=== PATIENT | female | born 1980 | race Hispanic/Latino ===

== ENCOUNTER 2016-12-13 19:56 | Emergency (ER) | payer MEDICARE ==
[~2016-12-13 19:56] MED LIST: ISOVUE-370 76%-LOCM 1 ML ONE
[2016-12-13 20:47] LABS: #Eosinphils 0.2 thou/uL (0.0-0.7); #Lymphocytes 1.8 thou/uL (1.20-3.40); #Monocytes 0.7 thou/uL (0.11-0.59); #Neutrophils 5.3 thou/uL (1.40-6.50); %Basophils 0.3 % (0.0-1.0); %Lymphocytes 22.5 % (21.0-51.0); %Monocytes 8.5 % (0.0-10.0); Hematocrit 41.1 % (36.0-47.0); Mean Platelet Volume 7.1 fL (7.4-10.4); White Blood Cell (WBC) Count 7.9 thou/uL (4.8-10.8)
[2016-12-13] MEDS ORDERED: Promethazine HCl 25 MG/ML VIAL ONE (21:00)
[2016-12-13] MEDS ORDERED: Fentanyl 100 MCG/2 ML VIAL ONE (21:00)
[2016-12-13 21:06] LABS: ALT (SGPT) 15 U/L (8-55); AST (SGOT) 13 U/L (5-34); Alkaline Phosphatase 88 U/L (40-150); Anion Gap 11 mmol/L (10-20); BUN (Urea Nitrogen) 16 mg/dL (7.0-18.7); Bilirubin, Total 0.4 mg/dL (0.2-1.2); CK (CPK) 81 U/L (29-168); Calc. Creatinine Clearance 0 mL/min (70-130); Calcium 9.6 mg/dL (7.8-10.44); Carbon Dioxide 26 mmol/L (22-29); Chloride 105 mmol/L (98-107); Estimated GFR-MDRD 75; Lipase 7 U/L (8-78); Protein, Total 6.9 g/dL (6.0-8.3)
--- NOTE | 2016-12-13 21:09 | RAD ---
AP VIEW CHEST 12/13/16 HISTORY: Chest pain, shortness of breath. AP view chest is obtained. The lungs are well aerated. No evidence of active intrathoracic disease s een. No evidence of effusions, pneumonia or pneumothorax seen. IMPRESSION: Unremarkable AP view chest. POS: [facility]
[2016-12-13 21:10] LABS: Troponin I Less than 0.010 ng/mL (< 0.028)
--- NOTE | 2016-12-13 23:32 | CT ---
CTA CHEST AND ABDOMEN CT AORTIC DISSECTION 12/13/16 HISTORY: Right sided chest pain, right upper quadrant pain since this morning. Contrast enhanced CTA of the chest and abdomen performed. 2D and 3D reconstructed images performed on an independent 3D workstation. The lung parenchyma is unremarkable. No evidence of mediastinal, axillary or hilar lymphadenopathy is seen. The liver and spleen are unremarkable. The gallbladder has been surgically removed. The pancreas is unremarkable. Adrenal glands and kidneys are unremarkable. CTA demonstrates the ascending and descending thoracic aorta to be unremarkable. No evidence of diss ections or aneurysms seen. CTA abdominal aorta demonstrates the SMA, celiac, YENY and renal arteries to be patent. No significan t evidence of aortic calcifications, dissections or abnormality seen. Some fluid is seen in the umbilical region. Has this patient had a recent umbilical surgery or herni a repair? Small bowel and appendix are unremarkable. IMPRESSION: No evidence of aortic dissections or aneurysms. POS: [place]
== END 2016-12-13 22:40 | disposition home or self-care (01) ==
LOC: ERS 19:56
DX: J45.909 Unspecified asthma, uncomplicated (principal); R11.0 Nausea; F32.9 Major depressive disorder, single episode, unspecified; F17.210 Nicotine dependence, cigarettes, uncomplicated
CPT/HCPCS: 71010; 71275; 80053; 82553; 83690; 84484; 84703; 85025; 93005; 96361; 96374; 96375; J2550; J3010

== ENCOUNTER 2017-02-13 19:44 | Emergency (ER) | payer MEDICARE ==
[2017-02-13 20:19] LABS: Bilirubin Negative (Negative); Blood, Urine Negative (Negative); Glucose, Urine (Dipstick) Negative (Negative); Ketone, Urine Negative (Negative); Nitrite Negative (Negative); Protein, Urine (Dipstick) Negative (Neg-Trace)
[2017-02-13 20:43] LABS: #Basophils 0.1 thou/uL (0.0-0.2); #Eosinphils 0.2 thou/uL (0.0-0.7); #Monocytes 0.8 thou/uL (0.11-0.59); #Neutrophils 9.1 thou/uL (1.40-6.50); %Basophils 0.6 % (0.0-1.0); %Eosinophils 1.5 % (0.0-10.0); %Lymphocytes 22.9 % (21.0-51.0); %Monocytes 6.4 % (0.0-10.0); Hematocrit 39.8 % (36.0-47.0); Mean Platelet Volume 7.2 fL (7.4-10.4); Red Blood Cell (RBC) Count 4.38 mill/uL (4.20-5.40); White Blood Cell (WBC) Count 13.3 thou/uL (4.8-10.8)
[2017-02-13 21:13] LABS: ALT (SGPT) 40 U/L (8-55); AST (SGOT) 23 U/L (5-34); Alkaline Phosphatase 83 U/L (40-150); Anion Gap 13 mmol/L (10-20); BUN (Urea Nitrogen) 18 mg/dL (7.0-18.7); Bilirubin, Total 0.2 mg/dL (0.2-1.2); Calc. Creatinine Clearance 0 mL/min (70-130); Calcium 9.3 mg/dL (7.8-10.44); Carbon Dioxide 24 mmol/L (22-29); Chloride 104 mmol/L (98-107); Estimated GFR-MDRD 57; Globulin 3.3 g/dL (2.4-3.5); Lipase 17 U/L (8-78); Protein, Total 7.6 g/dL (6.0-8.3)
[2017-02-13] MEDS ORDERED: Morphine 4 MG/ML VIAL ONE (23:36)
--- NOTE | 2017-02-14 08:19 | CT ---
PRELIMINARY REPORT/[facility]/EMERGENCY AFTER HOURS PROCEDURE: EXAM: CT Abdomen and Pelvis With Intravenous Contrast CLINICAL HISTORY: 36 years old, female; Pain; Abdominal pain; Generalized TECHNIQUE: Axial computed tomography images of the abdomen and pelvis with intravenous contrast. Coronal reformatted images were created and reviewed. CONTRAST: 100 mL of ISOVUE administered intravenously. COMPARISON: No relevant prior studies available. FINDINGS: Lower thorax: No acute findings. ABDOMEN: Liver: Normal. Gallbladder and bile ducts: Gallbladder is surgically absent. Pancreas: Normal. Spleen: Normal. Adrenals: Normal. Kidneys and ureters: Normal. Stomach and bowel: Normal. Appendix: The appendix is normal. PELVIS: Bladder: Normal. Reproductive: Normal as visualized. ABDOMEN and PELVIS: Intraperitoneal space: Normal. No free air. No significant fluid collection. Bones/joints: No acute fracture. No dislocation. Soft tissues: Normal. Vasculature: Normal. No abdominal aortic aneurysm. Lymph nodes: Normal. IMPRESSION: 1. No acute findings. 2. Non-acute findings are described above. Thank you for allowing us to participate in the care of your patient. Dictated and Authenticated by: Doe Goel MD 02/14/2017 1:13 AM Central Time ([place] & [place]) FINAL REPORT CT ABDOMEN AND PELVIS WITH ORAL AND IV CONTRAST: FINDINGS/IMPRESSION: I agree with the preliminary report given by Dr. Doe Goel of [facility]. POS: [facility]
== END 2017-02-14 02:39 | disposition home or self-care (01) ==
LOC: ERS 19:44
DX: R10.32 Left lower quadrant pain (principal); J45.909 Unspecified asthma, uncomplicated; F32.9 Major depressive disorder, single episode, unspecified; F17.210 Nicotine dependence, cigarettes, uncomplicated
CPT/HCPCS: 36415; 74177; 80053; 81003; 81025; 83690; 85025; 96374; J2270

== ENCOUNTER 2017-07-18 18:00 | Emergency (ER) | payer MEDICARE ==
[2017-07-18 19:08] LABS: #Eosinphils 0.1 thou/uL (0.0-0.7); #Lymphocytes 2.4 thou/uL (1.20-3.40); #Monocytes 0.7 thou/uL (0.11-0.59); #Neutrophils 7.8 thou/uL (1.40-6.50); %Basophils 0.4 % (0.0-1.0); %Eosinophils 0.9 % (0.0-10.0); %Lymphocytes 21.8 % (21.0-51.0); %Monocytes 6.3 % (0.0-10.0); %Neutrophils 70.5 % (42.0-75.0); Hemoglobin 13.7 g/dL (12.0-16.0); Mean Corpuscular HGB CONC 35.3 g/dL (32.0-36.0); Mean Corpuscular Volume 87.9 fl (81.0-99.0); Mean Platelet Volume 7.2 fL (7.4-10.4); Platelet Count 266 thou/uL (130-400); RBC Distribution Width 12.3 % (11.5-14.5); Red Blood Cell (RBC) Count 4.41 mill/uL (4.20-5.40)
--- NOTE | 2017-07-18 19:27 | ULT ---
RIGHT LOWER EXTREMITY VENOUS ULTRASOUND: 07/18/17 COMPARISON: None. HISTORY: Right lower extremity pain and edema. TECHNIQUE: Multiplanar guillaume scale and color doppler images were obtained in a right lower extremity venous ultra sound. Spectral analysis of the doppler waveforms were performed. FINDINGS: The right common femoral vein, profunda femoral vein, superficial femoral vein, and popliteal vein ar e normal in appearance without visible thrombus. These vessels demonstrate normal compression, flow, and augmentation. The posterior tibial vein and greater saphenous vein are also patent. IMPRESSION: No evidence of right lower extremity DVT. POS: [facility]
[2017-07-18 19:31] LABS: ALT (SGPT) 23 U/L (8-55); AST (SGOT) 19 U/L (5-34); Albumin 4.1 g/dL (3.5-5.0); Alkaline Phosphatase 78 U/L (40-150); Anion Gap 12 mmol/L (10-20); BUN (Urea Nitrogen) 15 mg/dL (7.0-18.7); Bilirubin, Total 0.3 mg/dL (0.2-1.2); Calc. Creatinine Clearance 0 mL/min (70-130); Calcium 9.3 mg/dL (7.8-10.44); Carbon Dioxide 23 mmol/L (22-29); Chloride 107 mmol/L (98-107); Estimated GFR-MDRD 71; Globulin 2.9 g/dL (2.4-3.5); Glucose 121 mg/dL (70-105); Potassium 3.5 mmol/L (3.5-5.1); Sodium 138 mmol/L (136-145)
[2017-07-18 19:43] LABS: BHCG - Serum Negative (NEGATIVE); Pregs Control Background? CLEAR/WHITE (CLR/WHITE); Pregs Control Bar Appear? YES (CONTROL BAR)
[2017-07-18 20:03] LABS: CKMB 0.6 ng/mL (0-6.6); Troponin I Less than 0.010 ng/mL (< 0.028)
[2017-07-18] MEDS ORDERED: Ketorolac Tromethamine 60 MG/2 ML VIAL ONE (20:15)
--- NOTE | 2017-07-20 11:48 | EKG ---
Test Reason : Blood Pressure : / mmHG Vent. Rate : 092 BPM Atrial Rate : 092 BPM P-R Int : 148 ms QRS Dur : 080 ms QT Int : 350 ms P-R-T Axes : 030 065 026 degrees QTc Int : 432 ms Normal sinus rhythm Possible Left atrial enlargement Anterior infarct , age undetermined Abnormal ECG Confirmed by PAMELA HORTON ([id number]), tape editor JUNE MIRZA ([id number]) on 07/20/2017 11:47:18 AM Referred By: Confirmed By:PAMELA HORTON
== END 2017-07-18 20:33 | disposition home or self-care (01) ==
LOC: ERS 18:00
DX: R07.89 Other chest pain (principal); M79.604 Pain in right leg; J45.909 Unspecified asthma, uncomplicated; F32.9 Major depressive disorder, single episode, unspecified; F17.210 Nicotine dependence, cigarettes, uncomplicated
CPT/HCPCS: 36415; 80053; 82553; 84484; 84703; 85025; 85379; 93005; 96372; J1885

== ENCOUNTER 2021-11-01 10:05 | Emergency (ER) | payer OTHER, SELFPAY ==
[2021-11-01 11:02] LABS: #Basophils 0.1 thou/uL (0.0-0.2); #Eosinphils 0.1 thou/uL (0.0-0.7); #Lymphocytes 2.5 thou/uL (1.20-3.40); #Monocytes 0.6 thou/uL (0.11-0.59); %Basophils 0.7 % (0.0-1.0); %Eosinophils 1.1 % (0.0-10.0); %Lymphocytes 30.1 % (21.0-51.0); %Monocytes 7.7 % (0.0-10.0); %Neutrophils 60.4 % (42.0-75.0); Hemoglobin 14.5 g/dL (12.0-16.0); Mean Corpuscular HGB CONC 34.8 g/dL (32.0-36.0); Mean Corpuscular Hemoglobin 31.3 pg (27.0-31.0); Mean Corpuscular Volume 90.2 fL (78.0-98.0); Mean Platelet Volume 7.6 fL (7.4-10.4); Platelet Count 312 thou/uL (130-400); RBC Distribution Width 11.6 % (11.5-14.5); Red Blood Cell (RBC) Count 4.63 mill/uL (4.20-5.40); White Blood Cell (WBC) Count 8.4 thou/uL (4.8-10.8)
[2021-11-01 11:26] LABS: ALT (SGPT) 60 U/L (8-55); AST (SGOT) 27 U/L (5-34); Albumin 4.4 g/dL (3.5-5.0); Alkaline Phosphatase 87 U/L (40-110); Anion Gap 13 mmol/L (10-20); BUN (Urea Nitrogen) 10 mg/dL (7.0-18.7); Bilirubin, Total 0.4 mg/dL (0.2-1.2); Calc. Creatinine Clearance 0 mL/min (70-130); Calcium 9.4 mg/dL (7.8-10.44); Carbon Dioxide 23 mmol/L (22-29); Chloride 105 mmol/L (98-107); Estimated GFR 82; Globulin 3.1 g/dL (2.4-3.5); Glucose 99 mg/dL (70-105); Lipase 13 U/L (8-78); Potassium 4.2 mmol/L (3.5-5.1); Protein, Total 7.5 g/dL (6.0-8.3); Sodium 137 mmol/L (136-145)
[2021-11-01 14:31] LABS: Troponin I Less than 0.010 ng/mL (< 0.028)
== END 2021-11-01 14:49 | disposition home or self-care (01) ==
LOC: ERS 10:05
DX: R07.89 Other chest pain (principal); Z86.16 Personal history of COVID-19; Z87.891 Personal history of nicotine dependence
CPT/HCPCS: 36415; 70450; 71045; 80053; 83690; 84484; 85025; 93005; 94760

== ENCOUNTER 2024-03-08 16:46 | Emergency (ER) | payer OTHER | END 2024-03-08 19:56 | disposition home or self-care (01) | LOC: ERS 16:46 | DX: J01.10 Acute frontal sinusitis, unspecified (principal); J06.9 Acute upper respiratory infection, unspecified; Z87.891 Personal history of nicotine dependence | CPT/HCPCS: 71045; 87428 ==